=== PATIENT | female | born 1950 | race Caucasian/White ===

== ENCOUNTER → 2018-12-07 | Outpatient (CLI) | payer MEDICARE ==
[2018-12-07 16:30] LABS: LDL Cholesterol,Calculated 66.4 mg/dL (0.0-131.0); VLDL Calculation 18.6 mg/dL (5.00-40.00)
== END ==
LOC: LABWHC1 08:39
PROVIDERS: ATTEND Otolaryngology
DX: E78.00 Pure hypercholesterolemia, unspecified (principal)
CPT/HCPCS: 36415; 80061

== ENCOUNTER 2019-01-18 06:00 | Inpatient (IN) | payer MEDICARE ==
--- NOTE | 2019-01-18 06:34 | ED ---
Anxiety HPI - General Chief Complaint: Anxiety Stated Complaint: anxiety Time Seen by Provider: 01/18/19 06:11 Source: patient Mode of arrival: ambulatory - History of Present Illness Initial Comments: Patient is a 68-year-old female who presents the emergency department today for evaluation of anxiety and passive suicidal visions. Patient states that she's been under a lot of stress, her dog approximately 6 weeks ago and she reports she's been very upset since that time. She's been following with her primary care physician Dr. Rogers and has been prescribed multiple different medications including lorazepam and BuSpar, on the sixth of this month the BuSpar was discontinued and she was prescribed Lexapro. Patient reports she's been compliant with these medications but she continues to feel worsening anxiety. She reports she has been unable to sleep for the past 3 nights. She reports that she keeps having visions of herself loading a gun to shoot herself in the head. Patient adamantly reports that she does not want to but doesn't know why she can't stop having these visions. Patient states that it's making her very anxious because her second committed suicide by gunshot wound to the head. Denies any delusions she's not hearing voices she is not being any thoughts of harming others. She reports she just feels overwhelmed with anxiety and GERD. - Related Data Home Medications: Home Medications Medication Instructions Recorded Confirmed Escitalopram [Lexapro] 10 mg PO DAILY 01/18/19 01/18/19 LORazepam [Ativan] 0.5 mg PO Q8H PRN 01/18/19 01/18/19 Lisinopril 20 mg PO HS 01/18/19 01/18/19 Ondansetron HCl [Zofran] 4 mg PO Q6H PRN 01/18/19 01/18/19 busPIRone HCL [Buspar] 7.5 mg PO HS 01/18/19 01/18/19 clonazePAM 0.5 mg PO DAILY PRN 01/18/19 01/18/19 Allergies/Adverse Reactions: Allergies Allergy/AdvReac Type Severity Reaction Status Date / Time No Known Allergies Allergy Verified 01/18/19 10:21 Review of Systems ROS Statement: Those systems with pertinent positive or pertinent negative responses have been documented in the HPI. ROS Other: All systems not noted in ROS Statement are negative. Past Medical History Additional Past Medical History / Comment(s): celiac History of Any Multi-Drug Resistant Organisms: None Reported Past Surgical History: Tonsillectomy Past Psychological History: Anxiety, Depression Smoking Status: Never smoker Past Alcohol Use History: Rare Past Drug Use History: None Reported General Exam - General Exam Comments Initial Comments: Physical Exam GENERAL: Thin female, appears very anxious, agitated HENT: Normocephalic, Atraumatic. EYES: PERRL, EOMI PULMONARY: Unlabored respirations. No audible rales rhonchi or wheezing was noted. CARDIOVASCULAR: There is a regular rate and rhythm without any murmurs gallops or rubs. ABDOMEN: Soft and nontender with normal bowel sounds. SKIN: Skin is clear with no lesions or rashes and otherwise unremarkable. : Deferred NEUROLOGIC: Patient is alert and oriented x3. Moving all extremities spontaneously MUSCULOSKELETAL: Normal extremities with adequate strength and full range of motion. No lower extremity swelling or edema. No calf tenderness. PSYCHIATRIC: Anxious, tearful Limitations: no limitations Course Vital Signs 01/18/19 06:06 Temperature 98.2 F Pulse Rate 65 Respiratory 18 Rate Blood Pressure 155/84 O2 Sat by Pulse 100 Oximetry Medical Decision Making - Medical Decision Making was seen and evaluated history is obtained from the patient Patient is very anxious, reports she's not feeling well not sleeping continues to have thoughts of harming herself though she states she doesn't want to. Decision was made to have patient evaluated by EPS patient's medically cleared for EPS evaluation Patient care was signed out to Dr. Hogue at shift change, patient currently awaiting evaluation by EPS - Lab Data Result diagrams: 01/18/19 07:05 01/18/19 07:05 Lab Results 01/18/19 01/18/19 01/18/19 Range/Units 07:05 07:05 07:05 WBC 7.9 (3.8-10.6) k/uL RBC 4.69 (3.80-5.40) m/uL Hgb 13.9 (11.4-16.0) gm/dL Hct 41.2 (34.0-46.0) % MCV 87.8 (80.0-100.0) fL MCH 29.5 (25.0-35.0) pg MCHC 33.6 (31.0-37.0) g/dL RDW 13.7 (11.5-15.5) % Plt Count 283 (150-450) k/uL Neutrophils % 75 % Lymphocytes % 17 % Monocytes % 5 % Eosinophils % 1 % Basophils % 1 % Neutrophils # 5.9 (1.3-7.7) k/uL Lymphocytes # 1.3 (1.0-4.8) k/uL Monocytes # 0.4 (0-1.0) k/uL Eosinophils # 0.1 (0-0.7) k/uL Basophils # 0.0 (0-0.2) k/uL Sodium 139 (137-145) mmol/L Potassium 4.1 (3.5-5.1) mmol/L Chloride 106 (98-107) mmol/L Carbon Dioxide 25 (22-30) mmol/L Anion Gap 8 mmol/L BUN 16 (7-17) mg/dL Creatinine 0.69 (0.52-1.04) mg/dL Est GFR (CKD-EPI)AfAm >90 (>60 ml/min/1.73 sqM) Est GFR (CKD-EPI)NonAf >90 (>60 ml/min/1.73 sqM) Glucose 104 H (74-99) mg/dL Calcium 9.5 (8.4-10.2) mg/dL Total Bilirubin 1.0 (0.2-1.3) mg/dL AST 18 (14-36) U/L ALT 19 (9-52) U/L Alkaline Phosphatase 43 (38-126) U/L Total Protein 7.2 (6.3-8.2) g/dL Albumin 4.4 (3.5-5.0) g/dL TSH 2.870 (0.465-4.680) mIU/L Urine Opiates Screen Not Detected (NotDetected) Ur Oxycodone Screen Not Detected (NotDetected) Urine Methadone Screen Not Detected (NotDetected) Ur Propoxyphene Screen Not Detected (NotDetected) Ur Barbiturates Screen Not Detected (NotDetected) U Tricyclic Antidepress Not Detected (NotDetected) Ur Phencyclidine Scrn Not Detected (NotDetected) Ur Amphetamines Screen Not Detected (NotDetected) U Methamphetamines Scrn Not Detected (NotDetected) U Benzodiazepines Scrn Not Detected (NotDetected) Urine Cocaine Screen Not Detected (NotDetected) U Marijuana (THC) Screen Not Detected (NotDetected) Disposition Clinical Impression: Acute anxiety Disposition: TRANSFER TO PSYCH HOSP/UNIT
[2019-01-18 07:18] LABS: Basophils % (A) 1 %; Eosinophils # (A) 0.1 k/uL (0-0.7); Eosinophils % (A) 1 %; HCT 41.2 % (34.0-46.0); HGB 13.9 gm/dL (11.4-16.0); Lymphocytes # (A) 1.3 k/uL (1.0-4.8); Lymphocytes % (A) 17 %; MCH 29.5 pg (25.0-35.0); MCHC 33.6 g/dL (31.0-37.0); MCV 87.8 fL (80.0-100.0); Mean Platelet Volume 6.7; Monocytes # (A) 0.4 k/uL (0-1.0); Monocytes % (A) 5 %; Neutrophils # (A) 5.9 k/uL (1.3-7.7); Neutrophils % (A) 75 %; Platelet Count 283 k/uL (150-450); RBC 4.69 m/uL (3.80-5.40); RDW 13.7 % (11.5-15.5); WBC 7.9 k/uL (3.8-10.6)
[2019-01-18 07:30] LABS: ALT 19 U/L (9-52); AST 18 U/L (14-36); Albumin 4.4 g/dL (3.5-5.0); Alkaline Phosphatase 43 U/L (38-126); Anion Gap 8 mmol/L; Blood Urea Nitrogen 16 mg/dL (7-17); Calcium 9.5 mg/dL (8.4-10.2); Carbon Dioxide 25 mmol/L (22-30); Chloride 106 mmol/L (98-107); Glucose 104 mg/dL (74-99); Potassium 4.1 mmol/L (3.5-5.1); Sodium 139 mmol/L (137-145); Total Protein 7.2 g/dL (6.3-8.2)
[2019-01-18 07:48] LABS: Amphetamine Screen,Urine Not Detected (NotDetected); Barbiturate Screen,Urine Not Detected (NotDetected); Benzodiazepines Screen,Urine Not Detected (NotDetected); Cocaine Screen,Urine Not Detected (NotDetected); Methadone Screen, Urine Not Detected (NotDetected); Opiate Screen,Urine Not Detected (NotDetected); Oxycodone Screen, Urine Not Detected (NotDetected); Phencyclidine Screen,Urine Not Detected (NotDetected); Tricyclic Antidepressant,Urine Not Detected (NotDetected); Urn Cannabinoid Scrn Not Detected (NotDetected)
[2019-01-18] MEDS ORDERED: MAGNESIUM HYDROXIDE 2,400 MG/10 ML CUP PO PRN (09:06)
[2019-01-18] MEDS ORDERED: MAG HYDROX/AL HYDROX/SIMETH 30 ML CUP PO PRN (09:06)
[2019-01-18] MEDS ORDERED: ACETAMINOPHEN TAB 325 MG TAB PO PRN (09:06)
[2019-01-18] MEDS ORDERED: ZIPRASIDONE 20 MG VIAL IM PRN (09:06)
[2019-01-18] MEDS ORDERED: ONDANSETRON 4 MG TAB PO PRN (09:11)
[2019-01-18] MEDS ORDERED: LORazepam 1 MG TAB PO PRN (09:11)
[2019-01-18 10:19] VITALS: BMI 18.1
[2019-01-18] MEDS: ESCITALOPRAM 10 MG TAB PO SCH (10:44)
--- NOTE | 2019-01-18 12:12 | P.HP ---
Psychiatric H&P - . H&P Date: 01/18/19 History & Physical: Allergies Allergy/AdvReac Type Severity Reaction Status Date / Time No Known Allergies Allergy Verified 01/18/19 06:10 Vital Signs Temp 98.2 F 01/18/19 06:06 Pulse 65 01/18/19 06:06 Resp 18 01/18/19 06:06 BP 155/84 01/18/19 06:06 Pulse Ox 100 01/18/19 06:06 Intake & Output 01/17/19 01/18/19 01/18/19 18:59 06:59 18:59 Weight 48.081 kg Laboratory Last Values WBC 7.9 k/uL (3.8-10.6) 01/18/19 07:05 RBC 4.69 m/uL (3.80-5.40) 01/18/19 07:05 Hgb 13.9 gm/dL (11.4-16.0) 01/18/19 07:05 Hct 41.2 % (34.0-46.0) 01/18/19 07:05 MCV 87.8 fL (80.0-100.0) 01/18/19 07:05 MCH 29.5 pg (25.0-35.0) 01/18/19 07:05 MCHC 33.6 g/dL (31.0-37.0) 01/18/19 07:05 RDW 13.7 % (11.5-15.5) 01/18/19 07:05 Plt Count 283 k/uL (150-450) 01/18/19 07:05 Neutrophils % 75 % 01/18/19 07:05 Lymphocytes % 17 % 01/18/19 07:05 Monocytes % 5 % 01/18/19 07:05 Eosinophils % 1 % 01/18/19 07:05 Basophils % 1 % 01/18/19 07:05 Neutrophils # 5.9 k/uL (1.3-7.7) 01/18/19 07:05 Lymphocytes # 1.3 k/uL (1.0-4.8) 01/18/19 07:05 Monocytes # 0.4 k/uL (0-1.0) 01/18/19 07:05 Eosinophils # 0.1 k/uL (0-0.7) 01/18/19 07:05 Basophils # 0.0 k/uL (0-0.2) 01/18/19 07:05 Sodium 139 mmol/L (137-145) 01/18/19 07:05 Potassium 4.1 mmol/L (3.5-5.1) 01/18/19 07:05 Chloride 106 mmol/L (98-107) 01/18/19 07:05 Carbon Dioxide 25 mmol/L (22-30) 01/18/19 07:05 Anion Gap 8 mmol/L 01/18/19 07:05 BUN 16 mg/dL (7-17) 01/18/19 07:05 Creatinine 0.69 mg/dL (0.52-1.04) 01/18/19 07:05 Est GFR (CKD-EPI)AfAm >90 (>60 ml/min/1.73 sqM) 01/18/19 07:05 Est GFR (CKD-EPI)NonAf >90 (>60 ml/min/1.73 sqM) 01/18/19 07:05 Glucose 104 mg/dL (74-99) H 01/18/19 07:05 Calcium 9.5 mg/dL (8.4-10.2) 01/18/19 07:05 Total Bilirubin 1.0 mg/dL (0.2-1.3) 01/18/19 07:05 AST 18 U/L (14-36) 01/18/19 07:05 ALT 19 U/L (9-52) 01/18/19 07:05 Alkaline Phosphatase 43 U/L (38-126) 01/18/19 07:05 Total Protein 7.2 g/dL (6.3-8.2) 01/18/19 07:05 Albumin 4.4 g/dL (3.5-5.0) 01/18/19 07:05 TSH 2.870 mIU/L (0.465-4.680) 01/18/19 07:05 Urine Opiates Screen Not Detected (NotDetected) 01/18/19 07:05 Ur Oxycodone Screen Not Detected (NotDetected) 01/18/19 07:05 Urine Methadone Screen Not Detected (NotDetected) 01/18/19 07:05 Ur Propoxyphene Screen Not Detected (NotDetected) 01/18/19 07:05 Ur Barbiturates Screen Not Detected (NotDetected) 01/18/19 07:05 U Tricyclic Antidepress Not Detected (NotDetected) 01/18/19 07:05 Ur Phencyclidine Scrn Not Detected (NotDetected) 01/18/19 07:05 Ur Amphetamines Screen Not Detected (NotDetected) 01/18/19 07:05 U Methamphetamines Scrn Not Detected (NotDetected) 01/18/19 07:05 U Benzodiazepines Scrn Not Detected (NotDetected) 01/18/19 07:05 Urine Cocaine Screen Not Detected (NotDetected) 01/18/19 07:05 U Marijuana (THC) Screen Not Detected (NotDetected) 01/18/19 07:05 Assessment and Plan (1) Major depressive disorder Narrative/Plan: Patient is a 68-year-old female who presents the emergency department today for evaluation of anxiety and passive suicidal visions. Patient states that she's been under a lot of stress, her dog approximately 6 weeks ago and she reports she's been very upset since that time. She's been following with her primary care physician Dr. Rogers and has been prescribed multiple different medications including lorazepam and BuSpar, on the sixth of this month the BuSpar was discontinued and she was prescribed Lexapro. Patient reports she's been compliant with these medications but she continues to feel worsening anxiety. She reports she has been unable to sleep for the past 3 nights. She reports that she keeps having visions of herself loading a gun to shoot herself in the head. Patient adamantly reports that she does not want to but doesn't know why she can't stop having these visions. Patient states that it's making her very anxious because her second committed suicide by gunshot wound to the head. Denies any delusions she's not hearing voices she is not being any thoughts of harming others. She reports she just feels overwhelmed with anxiety and GERD. Patient presents to the ER today with increasing anxiety and suicidal ideations. Pt states she moved here in July of 2018 and has not made any friends and is "very lonely." Pt states she was on a walk with her dog 6 weeks ago and the dog just collapsed and had to be put down 2 days later and since then she has not been able to pull herself out of her depression and envisions herself loading bullets into her gun. States the visions of the gun scared her and she called 911 who took the gun and bullets and brought her to the ER. Very tearful and appears scared. Patient states she is not eating or sleeping and feels she has a weight issue. States "I weighed myself yesterday with clothes on and I'm only 106 pounds. That's too skinny. - Related Data Allergies/Adverse Reactions: Allergies Allergy/AdvReac Type Severity Reaction Status Date / Time No Known Allergies Allergy Verified 01/18/19 06:10 Past Medical History Additional Past Medical History / Comment(s): celiac History of Any Multi-Drug Resistant Organisms: None Reported Past Surgical History: Tonsillectomy Past Psychological History: Anxiety, Depression Smoking Status: Never smoker Past Alcohol Use History: Rare Past Drug Use History: None Reported Musculoskeletal Examination - Abnormal/Involuntary Movements: [none] Strength: [greater than antigravity (greater than/equal to 3/5) in all extrem ities:] Muscle Tone: [no impairment] Gait: [grossly normal] Station: [grossly normal] Mental Status Examination - General Appearance: [ casual, bizarre, appears stated age Speech/Language: [spontaneous, rapid, expressive, loud] Attitude/Behavior: [cooperative, irritable Mood: [ depressed, anxious, fearful, hopelessness] Affect: [ lively, labile Orientation: [time, person, place situation] Thought Content: [wnl Risk Factors: [admits suicidal (ideations, plan), and/or Homicidal (ideations, plan), other] Perception: [wnl,denies hallucinations (auditory, visual, tactile), other] Thought Processes: [goal-oriented Concentration/Attention Span: [wnl] [Per observation and interview with the patient] Recent Memory: [wnl 3 out of 3 in 3 minutes] Remote Memory: [wnl] [past events, as related history] Intelligence: [ average] [based on history, based on vocabulary, syntax, grammar, and content] Judgement: [good [per patient's behavior/history of present illness] Insight: [good] [understanding severity of illness/history of present illness] Admitting Diagnosis: [] Patient Strengths - Personal Skills: [x] Achievements: [x] Steady employment/financial stability: [] Housing stability: [x] Able to vocalize needs: [x] Values and traditions: [x] Motivation, determination, readiness for change: [x] Patient Limitations: [medication, lack of social supports Initial Plan of Care: [She was admitted on a formal voluntary due to depression and hallucination and suicidal ideation after loss of her dog. She'll be evaluated by medicine, psychiatry, nursing staff, social work and occupational therapy. She be integrated in the [facility] therapeutic environment. She also be evaluated on a biopsychosocial for disposition discharge purposes. She most likely end up in [facility] on Thursday with her daughter is coming to pick her up. I did discontinue the BuSpar since his little clinical use and added Lamictal for mood stabilization 25 mg by mouth daily at bedtime we'll titrate to 100 mg by Thursday. She will remain on her Lexapro. All medications were looked up and the formulary [employer]. Estimated Length of Stay: [4 days] Initial Discharge Plan: [home, Prognosis: [good Justification for Inpatient Hospitalization - [Hallucinations yesterday , agitation, anxiety, depression resulting in sig nificant loss of functioning.] [Dangerous to self, others, or property with need for controlled environment.] [Emotional or behavioral conditions and complications requiring 24 hour medical and nursing care.] [Need for special drug therapy, or other therapeutic program requiring continuous hospitalization.] [Failure of social or occupational functioning.] Current Visit: Yes Status: Acute Code(s): F32.9 - MAJOR DEPRESSIVE DISORDER, SINGLE EPISODE, UNSPECIFIED SNOMED Code(s): 532319835 Time with Patient: Less than 30
[2019-01-18] MEDS ORDERED: lamoTRIgine 25 MG TAB PO SCH (21:00)
[2019-01-18] MEDS: LISINOPRIL 20 MG TAB PO SCH (21:00)
[2019-01-18] MEDS ORDERED: busPIRone HCl 5 MG TAB PO SCH (21:00)
[2019-01-19 04:30] VITALS: RESP 16
[2019-01-19] MEDS: ESCITALOPRAM 10 MG TAB PO SCH (09:40)
[2019-01-19 10:59] LABS: Cholesterol 144 mg/dL (<200); HDL Cholesterol 62 mg/dL (40-60); LDL Cholesterol,Calculated 72 mg/dL (0-99); Triglycerides 51 mg/dL (<150)
--- NOTE | 2019-01-19 13:40 | P.PN ---
Subjective Progress Note Date: 01/19/19 Principal diagnosis: Major depressive disorder 01/19/2019: Chart reviewed and discussed in team today discussed biopsychosocial and discharge date. Patient interviewed was feeling less depressed but irritated by roommate because there are loud snoring by the roommate. Suggested earplugs. Her depression is less today at 5 out of 10. Her anxiety still runs high at 6 out of 10. She denies any suicidal or homicidal thoughts today. She denies any auditory or visual hallucinations today. Objective - Vital Signs Vital signs: Vital Signs Temp 98.4 F 01/19/19 04:29 Pulse 86 01/19/19 04:29 Resp 16 01/19/19 04:29 BP 134/85 01/19/19 04:29 Pulse Ox 99 01/18/19 10:12 Intake & Output 01/18/19 01/19/19 01/19/19 18:59 06:59 18:59 Weight 48.081 kg - Labs CBC & Chem 7: 01/18/19 07:05 01/18/19 07:05 Labs: Abnormal Lab Results - Last 24 Hours (Table) 01/18/19 Range/Units 07:05 HDL Cholesterol 62 H (40-60) mg/dL Assessment and Plan (1) Major depressive disorder Narrative/Plan: Patient is a 68-year-old female who presents the emergency department today for evaluation of anxiety and passive suicidal visions. Patient states that she's been under a lot of stress, her dog approximately 6 weeks ago and she reports she's been very upset since that time. She's been following with her primary care physician Dr. Rogers and has been prescribed multiple different medications including lorazepam and BuSpar, on the sixth of this month the BuSpar was discontinued and she was prescribed Lexapro. Patient reports she's been compliant with these medications but she continues to feel worsening anxiety. She reports she has been unable to sleep for the past 3 nights. She reports that she keeps having visions of herself loading a gun to shoot herself in the head. Patient adamantly reports that she does not want to but d oesn't know why she can't stop having these visions. Patient states that it's making her very anxious because her second committed suicide by gunshot wound to the head. Denies any delusions she's not hearing voices she is not being any thoughts of harming others. She reports she just feels overwhelmed with anxiety and GERD. Patient presents to the ER today with increasing anxiety and suicidal ideations. Pt states she moved here in July of 2018 and has not made any friends and is "very lonely." Pt states she was on a walk with her dog 6 weeks ago and the dog just collapsed and had to be put down 2 days later and since then she has not been able to pull herself out of her depression and envisions herself loading bullets into her gun. States the visions of the gun scared her and she called 911 who took the gun and bullets and brought her to the ER. Very tearful and appears scared. Patient states she is not eating or sleeping and feels she has a weight issue. States "I weighed myself yesterday with clothes on and I'm only 106 pounds. That's too skinny. - Related Data Allergies/Adverse Reactions: Allergies Allergy/AdvReac Type Severity Reaction Status Date / Time No Known Allergies Allergy Verified 01/18/19 06:10 Past Medical History Additional Past Medical History / Comment(s): celiac History of Any Multi-Drug Resistant Organisms: None Reported Past Surgical History: Tonsillectomy Past Psychological History: Anxiety, Depression Smoking Status: Never smoker Past Alcohol Use History: Rare Past Drug Use History: None Reported Musculoskeletal Examination - Abnormal/Involuntary Movements: [none] Strength: [greater than antigravity (greater than/equal to 3/5) in all extremities:] Muscle Tone: [no impairment] Gait: [grossly normal] Station: [grossly normal] Mental Status Examination - General Appearance: [ casual, bizarre, appears stated age Speech/Language: [spontaneous, rapid, expressive, loud] Attitude/Behavior: [cooperative, irritable Mood: [ depressed, anxious, fearful, hopelessness] Affect: [ lively, labile Orientation: [time, person, place situation] Thought Content: [wnl Risk Factors: [admits suicidal (ideations, plan), and/or Homicidal (ideations, plan), other] Perception: [wnl,denies hallucinations (auditory, visual, tactile), other] Thought Processes: [goal-oriented Concentration/Attention Span: [wnl] [Per observation and interview with the patient] Recent Memory: [wnl 3 out of 3 in 3 minutes] Remote Memory: [wnl] [past events, as related history] Intelligence: [ average] [based on history, based on vocabulary, syntax, grammar, and content] Judgement: [good [per patient's behavior/history of present illness] Insight: [good] [understanding severity of illness/history of present illness] Admitting Diagnosis: [Major depressive disorder] Initial Plan of Care: [She was admitted on a formal voluntary due to depression and hallucination and suicidal ideation after loss of her dog. She'll be evaluated by medicine, psychiatry, nursing staff, social work and occupational therapy. She be integrated in the [facility] therapeutic environment. She also be evaluated on a biopsychosocial for disposition discharge purposes. She most likely end up in [facility] on Thursday with her daughter is coming to ick her up. I did discontinue the BuSpar since his little clinical use and added Lamictal for mood stabilization 25 mg by mouth daily at bedtime we'll titrate to 100 mg by Thursday. She will remain on her Lexapro. All medications were looked up and the formulary [employer]. 01/19/2019: She remains on 15 minute checks for safety. Increased her Lamictal 50 mg by mouth daily at bedtime for mood stability and racing thoughts, increase Lexapro to 20 mg daily and added Mirapex for mild shaking. Current Visit: Yes Status: Acute Code(s): F32.9 - MAJOR DEPRESSIVE DISORDER, SINGLE EPISODE, UNSPECIFIED SNOMED Code(s): 548165183 Time with Patient: Less than 30
--- NOTE | 2019-01-19 17:10 | P.CONS ---
History of Present Illness - Reason for Consult Consult date: 01/19/19 Medical management, history of celiac disease Requesting physician: Everton Langford - Chief Complaint Depression, suicidal thoughts - History of Present Illness This is a 68-year-old female who follows with Dr. Rogers with history of anxiety, depression, insomnia, celiac disease, occasional alcohol use and multiple other medical issues admitted to the mental health unit for depression, suicidal thoughts. Patient's canine approximately 6 weeks ago, depression continues to worsen, on Ativan, Lexapro. States she has not slept in 3 nights. Reports continuing to have recurrent "visions"of shooting herself in the head which patient reports,is how her second committed suicide. Good appetite with no nausea vomiting or diarrhea. Occasional intake of beer, gave up wine,because its linked to dementia.Denies chest pain, palpitations or increased shortness of breath. Denies lightheadedness dizziness or focal deficits. Mild new onset hand shakiness, which patient states has worsened since her admission; possibly essential tremors. VSS. Afebrile, normal WBC. CBC, CMP unremarkable. Drug screen negative. Reports she is going to [place], [place] with her daughter at discharge. Review of Systems ROS Statement: Those systems with pertinent positive or pertinent negative responses have been documented in the HPI. ROS Other: All systems not noted in ROS Statement are negative. Past Medical History Additional Past Medical History / Comment(s): celiac History of Any Multi-Drug Resistant Organisms: None Reported Past Surgical History: Tonsillectomy Past Anesthesia/Blood Transfusion Reactions: No Reported Reaction Past Psychological History: Anxiety, Depression Smoking Status: Never smoker Past Alcohol Use History: Rare Past Drug Use History: None Reported Medications and Allergies Home Medications Medication Instructions Recorded Confirmed Type Escitalopram [Lexapro] 10 mg PO DAILY 01/18/19 01/18/19 History LORazepam [Ativan] 0.5 mg PO Q8H PRN 01/18/19 01/18/19 History Lisinopril 20 mg PO HS 01/18/19 01/18/19 History Ondansetron HCl [Zofran] 4 mg PO Q6H PRN 01/18/19 01/18/19 History busPIRone HCL [Buspar] 7.5 mg PO HS 01/18/19 01/18/19 History clonazePAM 0.5 mg PO DAILY PRN 01/18/19 01/18/19 History Allergies Allergy/AdvReac Type Severity Reaction Status Date / Time No Known Allergies Allergy Verified 01/18/19 10:21 Physical Exam Vitals: Vital Signs Temp Pulse Resp BP 01/19/19 04:29 98.4 F 86 16 134/85 PHYSICAL EXAM: VITAL SIGNS: As above GENERAL: Sitting up in chair, no acute distress HEENT: Conjunctivae normal. eyes normal. Oral mucosa moist NECK: No JVD. No thyroid enlargement. No LNs CARDIOVASCULAR: S1, S2 muffled. No murmur RESPIRATION: Breath sounds diminished in the bases. No rhonchi or crackles. No bronchial breathing. ABDOMEN: Soft, nontender . No guarding. no masses palpable. Bowel sounds heard. LEGS: No edema. no swelling PSYCHIATRY: Alert and oriented -3, mood and affect normal. NERVOUS SYSTEM: Cranial N 2-12 grossly normal. Moves all 4 limbs. No focal deficits. fine hand tremors, possibly essential Skin: no lesions no rash Joints: No active swelling. No inflammation. Lymphatic system. No LN neck axilla or groin. Results CBC & Chem 7: 01/18/19 07:05 01/18/19 07:05 Labs: Abnormal Lab Results - Last 24 Hours (Table) 01/18/19 Range/Units 07:05 HDL Cholesterol 62 H (40-60) mg/dL Assessment and Plan Assessment: -Acute anxiety, suicidal ideation -Major depressive disorder -celiac disease -Possibly new onset of fine hand tremors, possibly essential, possibly early disease process; will continue to monitor Plan: Continue on current medication regime ,monitoring and symptomatic treatment.VSS. Home meds have been reviewed and resumed. GI prophylaxis in place. Follow closely with psychiatry. Further recommendations to follow. Thank you Dr. Langford for allowing us to participate in the care of this ple asant patient. The impression and plan of care has been dictated as directed. : I performed a history and examination of this patient, discussed the same with the dictator. I agree with the dictator's note ,documented as a scribe. Any additional findings or plans will be noted. Time taken: 35 minutes
[2019-01-19] MEDS: PRAMIPEXOLE 0.125 MG TAB PO SCH ×2 (18:25→20:40)
[2019-01-19] MEDS: lamoTRIgine 25 MG TAB PO SCH (20:40)
[2019-01-19] MEDS: LISINOPRIL 20 MG TAB PO SCH (20:40)
[2019-01-19 21:24] LABS: Hemoglobin A1C 5.3 % (4.0-6.0)
[2019-01-20] MEDS: PRAMIPEXOLE 0.125 MG TAB PO SCH ×3 (09:18→20:53)
[2019-01-20] MEDS: ESCITALOPRAM 20 MG TAB PO SCH (09:18)
[2019-01-20] MEDS: PANTOPRAZOLE 40 MG TABLET PO SCH (09:18)
--- NOTE | 2019-01-20 13:53 | P.PN ---
Subjective Progress Note Date: 01/20/19 Principal diagnosis: Major depressive disorder 01/19/2019: Chart reviewed and discussed in team today discussed biopsychosocial and discharge date. Patient interviewed was feeling less depressed but irritated by roommate because there are loud snoring by the roommate. Suggested earplugs. Her depression is less today at 5 out of 10. Her anxiety still runs high at 6 out of 10. She denies any suicidal or homicidal thoughts today. She denies any auditory or visual hallucinations today. 01/20/2019: chart reviewed and discussed in team and discharge tomorrow. Interviewed patient and less depressed and no racing thoughts. denies SI/HI. She denies auditory and visual hallucinations. Objective - Vital Signs Vital signs: Vital Signs Temp 99.1 F 01/20/19 07:01 Pulse 63 01/20/19 07:01 Resp 16 01/20/19 07:01 BP 103/55 01/20/19 07:01 Pulse Ox 99 01/18/19 10:12 - Labs CBC & Chem 7: 01/18/19 07:05 01/18/19 07:05 Assessment and Plan (1) Major depressive disorder Narrative/Plan: Patient is a 68-year-old female who presents the emergency department today for evaluation of anxiety and passive suicidal visions. Patient states that she's been under a lot of stress, her dog approximately 6 weeks ago and she reports she's been very upset since that time. She's been following with her primary care physician Dr. Rogers and has been prescribed multiple different medications including lorazepam and BuSpar, on the sixth of this month the BuSpar was discontinued and she was prescribed Lexapro. Patient reports she's been compliant with these medications but she continues to feel worsening anxiety. She reports she has been unable to sleep for the past 3 nights. She reports that she keeps having visions of herself loading a gun to shoot herself in the head. Patient adamantly reports that she does not want to but doesn't know why she can't stop having these visions. Patient states that it's making her very anxious because her second committed suicide by gunshot wound to the head. Denies any delusions she's not hearing voices she is not being any thoughts of harming others. She reports she just feels overwhelmed with anxiety and GERD. Patient presents to the ER today with increasing anxiety and suicidal ideations. Pt states she moved here in July of 2018 and has not made any friends and is "very lonely." Pt states she was on a walk with her dog 6 weeks ago and the dog just collapsed and had to be put down 2 days later and since then she has not been able to pull herself out of her depression and envisions herself loading bullets into her gun. States the visions of the gun scared her and she called 911 who took the gun and bullets and brought her to the ER. Very tearful and appears scared. Patient states she is not eating or sleeping and feels she has a weight issue. States "I weighed myself yesterday with clothes on and I'm only 106 pounds. That's too skinny. - Related Data Allergies/Adverse Reactions: Allergies Allergy/AdvReac Type Severity Reaction Status Date / Time No Known Allergies Allergy Verified 01/18/19 06:10 Past Medical History Additional Past Medical History / Comment(s): celiac History of Any Multi-Drug Resistant Organisms: None Reported Past Surgical History: Tonsillectomy Past Psychological History: Anxiety, Depression Smoking Status: Never smoker Past Alcohol Use History: Rare Past Drug Use History: None Reported Musculoskeletal Examination - Abnormal/Involuntary Movements: [none] Strength: [greater than antigravity (greater than/equal to 3/5) in all extremities:] Muscle Tone: [no impairment] Gait: [grossly normal] Station: [grossly normal] Mental Status Examination - General Appearance: [ casual, bizarre, appears stated age Speech/Language: [spontaneous, rapid, expressive, loud] Attitude/Behavior: [cooperative, irritable Mood: [ depressed, anxious, fearful, hopelessness] Affect: [ lively, labile Orientation: [time, person, place situation] Thought Content: [wnl Risk Factors: [admits suicidal (ideations, plan), and/or Homicidal (ideations, plan), other] Perception: [wnl,denies hallucinations (auditory, visual, tactile), other] Thought Processes: [goal-oriented Concentration/Attention Span: [wnl] [Per observation and interview with the patient] Recent Memory: [wnl 3 out of 3 in 3 minutes] Remote Memory: [wnl] [past events, as related history] Intelligence: [ average] [based on history, based on vocabulary, syntax, grammar, and content] Judgement: [good [per patient's behavior/history of present illness] Insight: [good] [understanding severity of illness/history of present illness] Admitting Diagnosis: [Major depressive disorder] Initial Plan of Care: [She was admitted on a formal voluntary due to depression and hallucination and suicidal ideation after loss of her dog. She'll be evaluated by medicine, psychiatry, nursing staff, social work and occupational therapy. She be integrated in the [facility] therapeutic environment. She also be evaluated on a biopsychosocial for disposition discharge purposes. She most likely end up in [facility] on Thursday with her daughter is coming to pick her up. I did discontinue the BuSpar since his little clinical use and added Lamictal for mood stabilization 25 mg by mouth daily at bedtime we'll titrate to 100 mg by Thursday. She will remain on her Lexapro. All medications were looked up and the formulary [employer]. 01/19/2019: She remains on 15 minute checks for safety. Increased her Lamictal 50 mg by mouth daily at bedtime for mood stability and racing thoughts, increase Lexapro to 20 mg daily and added Mirapex for mild shaking. 01/20/2019: discharge tomorrow. remain on lamictal, mirapex and lexapro. Current Visit: Yes Status: Acute Code(s): F32.9 - MAJOR DEPRESSIVE DISORDER, SINGLE EPISODE, UNSPECIFIED SNOMED Code(s): 877438396 Time with Patient: Less than 30
--- NOTE | 2019-01-20 13:57 | P.DS ---
Providers Date of admission: 01/18/19 08:54 Expected date of discharge: 01/21/19 Attending physician: Everton Langford DO Consults: 01/18/19 09:06 Consult Physician Routine Consulting Provider: Gera Rogers Jr Consult Reason/Comments: Medical H and P Do you want consulting provider notified?: Yes Primary care physician: Gera Rogers - Discharge Diagnosis(es) (1) Major depressive disorder Allergies Allergy/AdvReac Type Severity Reaction Status Date / Time No Known Allergies Allergy Verified 01/18/19 06:10 Vital Signs Temp 98.2 F 01/18/19 06:06 Pulse 65 01/18/19 06:06 Resp 18 01/18/19 06:06 BP 155/84 01/18/19 06:06 Pulse Ox 100 01/18/19 06:06 Intake & Output 01/17/19 01/18/19 01/18/19 18:59 06:59 18:59 Weight 48.081 kg Laboratory Last Values WBC 7.9 k/uL (3.8-10.6) 01/18/19 07:05 RBC 4.69 m/uL (3.80-5.40) 01/18/19 07:05 Hgb 13.9 gm/dL (11.4-16.0) 01/18/19 07:05 Hct 41.2 % (34.0-46.0) 01/18/19 07:05 MCV 87.8 fL (80.0-100.0) 01/18/19 07:05 MCH 29.5 pg (25.0-35.0) 01/18/19 07:05 MCHC 33.6 g/dL (31.0-37.0) 01/18/19 07:05 RDW 13.7 % (11.5-15.5) 01/18/19 07:05 Plt Count 283 k/uL (150-450) 01/18/19 07:05 Neutrophils % 75 % 01/18/19 07:05 Lymphocytes % 17 % 01/18/19 07:05 Monocytes % 5 % 01/18/19 07:05 Eosinophils % 1 % 01/18/19 07:05 Basophils % 1 % 01/18/19 07:05 Neutrophils # 5.9 k/uL (1.3-7.7) 01/18/19 07:05 Lymphocytes # 1.3 k/uL (1.0-4.8) 01/18/19 07:05 Monocytes # 0.4 k/uL (0-1.0) 01/18/19 07:05 Eosinophils # 0.1 k/uL (0-0.7) 01/18/19 07:05 Basophils # 0.0 k/uL (0-0.2) 01/18/19 07:05 Sodium 139 mmol/L (137-145) 01/18/19 07:05 Potassium 4.1 mmol/L (3.5-5.1) 01/18/19 07:05 Chloride 106 mmol/L (98-107) 01/18/19 07:05 Carbon Dioxide 25 mmol/L (22-30) 01/18/19 07:05 Anion Gap 8 mmol/L 01/18/19 07:05 BUN 16 mg/dL (7-17) 01/18/19 07:05 Creatinine 0.69 mg/dL (0.52-1.04) 01/18/19 07:05 Est GFR (CKD-EPI)AfAm >90 (>60 ml/min/1.73 sqM) 01/18/19 07:05 Est GFR (CKD-EPI)NonAf >90 (>60 ml/min/1.73 sqM) 01/18/19 07:05 Glucose 104 mg/dL (74-99) H 01/18/19 07:05 Calcium 9.5 mg/dL (8.4-10.2) 01/18/19 07:05 Total Bilirubin 1.0 mg/dL (0.2-1.3) 01/18/19 07:05 AST 18 U/L (14-36) 01/18/19 07:05 ALT 19 U/L (9-52) 01/18/19 07:05 Alkaline Phosphatase 43 U/L (38-126) 01/18/19 07:05 Total Protein 7.2 g/dL (6.3-8.2) 01/18/19 07:05 Albumin 4.4 g/dL (3.5-5.0) 01/18/19 07:05 TSH 2.870 mIU/L (0.465-4.680) 01/18/19 07:05 Urine Opiates Screen Not Detected (NotDetected) 01/18/19 07:05 Ur Oxycodone Screen Not Detected (NotDetected) 01/18/19 07:05 Urine Methadone Screen Not Detected (NotDetected) 01/18/19 07:05 Ur Propoxyphene Screen Not Detected (NotDetected) 01/18/19 07:05 Ur Barbiturates Screen Not Detected (NotDetected) 01/18/19 07:05 U Tricyclic Antidepress Not Detected (NotDetected) 01/18/19 07:05 Ur Phencyclidine Scrn Not Detected (NotDetected) 01/18/19 07:05 Ur Amphetamines Screen Not Detected (NotDetected) 01/18/19 07:05 U Methamphetamines Scrn Not Detected (NotDetected) 01/18/19 07:05 U Benzodiazepines Scrn Not Detected (NotDetected) 01/18/19 07:05 Urine Cocaine Screen Not Detected (NotDetected) 01/18/19 07:05 U Marijuana (THC) Screen Not Detected (NotDetected) 01/18/19 07:05 Assessment and Plan (1) Major depressive disorder Narrative/Plan: Patient is a 68-year-old female who presents the emergency department today for evaluation of anxiety and passive suicidal visions. Patient states that she's been under a lot of stress, her dog approximately 6 weeks ago and she reports she's been very upset since that time. She's been following with her primary care physician Dr. Rogers and has been prescribed multiple different medications including lorazepam and BuSpar, on the sixth of this month the BuSpar was discontinued and she was prescribed Lexapro. Patient reports she's been compliant with these medications but she continues to feel worsening anxiety. She reports she has been unable to sleep for the past 3 nights. She reports that she keeps having visions of herself loading a gun to shoot herself in the head. Patient adamantly reports that she does not want to but doesn't know why she can't stop having these visions. Patient states that it's making her very anxious because her second committed suicide by gunshot wound to the head. Denies any delusions she's not hearing voices she is not being any thoughts of harming others. She reports she just feels overwhelmed with anxiety and GERD. Patient presents to the ER today with increasing anxiety and suicidal ideations. Pt states she moved here in July of 2018 and has not made any friends and is "very lonely." Pt states she was on a walk with her dog 6 weeks ago and the dog just collapsed and had to be put down 2 days later and since then she has not been able to pull herself out of her depression and envisions herself loading bullets into her gun. States the visions of the gun scared her and she called 911 who took the gun and bullets and brought her to the ER. Very tearful and appears scared. Patient states she is not eating or sleeping and feels she has a weight issue. States "I weighed myself yesterday with clothes on and I'm only 106 pounds. That's too skinny. - Related Data Allergies/Adverse Reactions: Allergies Allergy/AdvReac Type Severity Reaction Status Date / Time No Known Allergies Allergy Verified 01/18/19 06:10 Past Medical History Additional Past Medical History / Comment(s): celiac History of Any Multi-Drug Resistant Organisms: None Reported Past Surgical History: Tonsillectomy Past Psychological History: Anxiety, Depression Smoking Status: Never smoker Past Alcohol Use History: Rare Past Drug Use History: None Reported Musculoskeletal Examination - Abnormal/Involuntary Movements: [none] Strength: [greater than antigravity (greater than/equal to 3/5) in all extremities:] Muscle Tone: [no impairment] Gait: [grossly normal] Station: [grossly normal] Mental Status Examination - General Appearance: [ casual, bizarre, appears stated age Speech/Language: [spontaneous, rapid, expressive, loud] Attitude/Behavior: [cooperative, irritable Mood: [ depressed, anxious, fearful, hopelessness] Affect: [ lively, labile Orientation: [time, person, place situation] Thought Content: [wnl Risk Factors: [admits suicidal (ideations, plan), and/or Homicidal (ideations, plan), other] Perception: [wnl,denies hallucinations (auditory, visual, tactile), other] Thought Processes: [goal-oriented Concentration/Attention Span: [wnl] [Per observation and interview with the patient] Recent Memory: [wnl 3 out of 3 in 3 minutes] Remote Memory: [wnl] [past events, as related history] Intelligence: [ average] [based on history, based on vocabulary, syntax, grammar, and content] Judgement: [good [per patient's behavior/history of present illness] Insight: [good] [understanding severity of illness/history of present illness] Admitting Diagnosis: [major depressive disorder and suicidal thoughts] Current Visit: Yes Status: Acute Priority: Low Hospital Course: Plan of Care: [She was admitted on a formal voluntary due to depression and hallucination and suicidal ideation after loss of her dog. She'll be evaluated by medicine, psychiatry, nursing staff, social work and occupational therapy. She be integrated in the [facility] therapeutic environment. She also be evaluated on a biopsychosocial for disposition discharge purposes. She most likely end up in [facility] on Thursday with her daughter is coming to pick her up. I did discontinue the BuSpar since his little clinical use and added Lamictal for mood stabilization 25 mg by mouth daily at bedtime we'll titrate to 50 mg by Thursday. She will remain on her Lexapro. All medications were looked up for the formulary [employer]. 01/19/2019: She remains on 15 minute checks for safety. Increased her Lamictal 50 mg by mouth daily at bedtime for mood stability and racing thoughts, increase Lexapro to 20 mg daily and added Mirapex for mild shaking. 01/20/2019: discharge tomorrow. remain on lamictal, mirapex and lexapro. Mental status examination at the time of discharge: The patient presents alert, pleasant, and cooperative. There calmly seated without any agitated behavior. [she] reports that [her] mood is good. Affect is congruent and euthymic. [she] deny having any suicidal or homicidal ideation intent or plan. [she] denies any auditory or visual hallucinations. There is no evidence of any delusional thought content. [her] thought process is linear and goal-directed. [her] speech is fluent and nonpressured. [her] memory and concentration is grossly intact for the purposes of this session. Patient Condition at Discharge: Stable Plan - Discharge Summary Discharge Rx Participant: Yes New Discharge Prescriptions: New lamoTRIgine [LaMICtal] 50 mg PO 2100 30 Days #60 tab Escitalopram [Lexapro] 20 mg PO DAILY 30 Days #30 tab Pramipexole [Mirapex] 0.125 mg PO TID 30 Days #30 tab Pantoprazole [Protonix] 40 mg PO AC-BRKFST tablet. Lisinopril [Zestril] 20 mg PO HS 30 Days #30 tab Continue Lisinopril 20 mg PO HS Discontinued clonazePAM 0.5 mg PO DAILY PRN PRN Reason: Anxiety Ondansetron HCl [Zofran] 4 mg PO Q6H PRN PRN Reason: Nausea LORazepam [Ativan] 0.5 mg PO Q8H PRN PRN Reason: Anxiety busPIRone HCL [Buspar] 7.5 mg PO HS Escitalopram [Lexapro] 10 mg PO DAILY Discharge Medication List Lisinopril 20 mg PO HS 01/18/19 [History] Escitalopram [Lexapro] 20 mg PO DAILY 30 Days #30 tab 01/20/19 [Rx] Lisinopril [Zestril] 20 mg PO HS 30 Days #30 tab 01/20/19 [Rx] Pantoprazole [Protonix] 40 mg PO AC-BRKFST tablet. 01/20/19 [Rx] Pramipexole [Mirapex] 0.125 mg PO TID 30 Days #30 tab 01/20/19 [Rx] lamoTRIgine [LaMICtal] 50 mg PO 2100 30 Days #60 tab 01/20/19 [Rx] Follow up Appointment(s)/Referral(s): Gera Rogers Jr, [Primary Care Provider] - 1-2 days Patient Instructions/Handouts: Generalized Anxiety Disorder (ED) Activity/Diet/Wound Care/Special Instructions: Activity and diet as tolerated. No guns or weapons in the home. Take all medications as prescribed and attend all follow up appointments as scheduled. Refrain from alcohol and street drugs not prescribed by your physician. If in need of of medication refills, please go to your primary care physician or to your outpatient psychiatric provider. If in crisis please call , or go to the nearest . Discharge Disposition: HOME SELF-CARE
[2019-01-20] MEDS: lamoTRIgine 25 MG TAB PO SCH (20:53)
[2019-01-20] MEDS: LISINOPRIL 20 MG TAB PO SCH (20:53)
[2019-01-21 07:28] VITALS: BP 111/63; PULSE 59; TEMP 97.7
[2019-01-21] MEDS: ESCITALOPRAM 20 MG TAB PO SCH (08:55)
[2019-01-21] MEDS: PRAMIPEXOLE 0.125 MG TAB PO SCH ×2 (08:55→15:55)
[2019-01-21] MEDS: PANTOPRAZOLE 40 MG TABLET PO SCH (08:56)
== END 2019-01-21 17:11 | disposition home or self-care (01) | DRG 881 ==
LOC: EC 06:00 → 3MHU 08:54
PROVIDERS: ADMIT Psychiatry & Neurology Psychiatry; ATTEND Psychiatry & Neurology Psychiatry
DX: F32.9 Major depressive disorder, single episode, unspecified (principal); R45.851 Suicidal ideations; F41.9 Anxiety disorder, unspecified; K21.9 Gastro-esophageal reflux disease without esophagitis; K90.0 Celiac disease; G47.00 Insomnia, unspecified; G25.0 Essential tremor; Z79.899 Other long term (current) drug therapy
CPT/HCPCS: 36415; 80053; 80061; 80306; 82075; 83036; 84443; 85025; 99284

== ENCOUNTER → 2019-09-02 | Outpatient (CLI) | payer MEDICARE ==
--- NOTE | 2019-09-02 11:54 | US ---
EXAMINATION TYPE: US carotid duplex BILAT DATE OF EXAM: 09/02/2019 COMPARISON: NONE CLINICAL HISTORY: 68-year-old female memory loss R41.3. TECHNIQUE: Carotid duplex ultrasound examination. Indirect Doppler criteria is utilized. FINDINGS: EXAM MEASUREMENTS: RIGHT: Peak Systolic Velocity (PSV) cm/sec ----- Right CCA: 93.0 ----- Right ICA: 87.7 ----- Right ECA: 65.0 ICA/CCA ratio: 0.9 RIGHT: End Diastole cm/sec ----- Right CCA: 32.5 ----- Right ICA: 32.4 ----- Right ECA: 9.5 LEFT: Peak Systolic Velocity (PSV) cm/sec ----- Left CCA: 72.9 ----- Left ICA: 80.9 ----- Left ECA: 69.5 ICA/CCA ratio: 1.1 LEFT: End Diastole cm/sec ----- Left CCA: 24.5 ----- Left ICA: 35.6 ----- Left ECA: 12.2 VERTEBRALS (direction of flow): Right Vertebral: Antegrade Left Vertebral: Antegrade Rhythm: Normal SONOGRAPHY NOTES: ICA's are somewhat tortuous. Mild atherosclerotic changes with no significant sten osis seen. IMPRESSION: No hemodynamically significant ICA stenosis on either side. Criteria for Assigning % of Stenosis / Diameter reduction (Estimation based on the indirect measurements of the internal carotid artery velocities (ICA PSV). 1. Normal (no stenosis)=ICA PSV < 125 cm/s: ratio < 2.0: ICA EDV<40 cm/s. 2. Less than 50% stenosis=ICA PSV < 125 cm/s: ratio < 2.0: ICA EDV<40 cm/s. 3. 50 to 69% stenosis=ICA PSV of 125 to 230 cm/s: ration 2.0 ? 4.0: ICA EDV 40-100 cm/s. 4. Greater than 70% stenosis to near occlusion= ICA PSV > 230 cm/s: ratio > 4.0: ICA EDV > 100 cm/s. 5. Near occlusion= ICA PSV velocities may be low or undetectable: variable ratio and ICA EDV. 6. Total occlusion=unable to detect flow.
--- NOTE | 2019-09-02 22:36 | CT ---
EXAMINATION TYPE: CT brain wo/w con DATE OF EXAM: 09/02/2019 COMPARISON: None INDICATION: memory loss DLP: 1784.2 mGycm, Automated exposure control for dose reduction was used. CONTRAST: 100 mL Isovue-300 CT of the brain is performed utilizing 3 mm thick sections through the posterior fossa and 3 mm thick sections through the remaining calvarium. Study is performed within 24 hours of arrival to the hosp [facility]. No abnormal hyperdensity is present to suggest an acute intracranial hemorrhage. No mass lesion is evident. No acute infarcts are evident. Ventricles and sulci are appropriate for the patient age. Paranasal sinuses and mastoid air cells within the [id number] are clear. IMPRESSIONS: 1. Normal pre and postcontrast MRI brain
== END | disposition home or self-care (01) ==
LOC: RADCTMAIN 08:27
PROVIDERS: ATTEND Family Medicine
DX: R41.3 Other amnesia (principal)
CPT/HCPCS: 82565; 84520; 93880; 70470; 36415; Q9967

== ENCOUNTER → 2020-01-25 | Outpatient (CLI) | payer MEDICARE ==
--- NOTE | 2020-02-02 10:33 | MM ---
Reason for exam: additional evaluation requested from prior study. Last mammogram was performed 2 years ago. History: Patient is postmenopausal. Physical Findings: Nurse did not find any significant physical abnormalities on exam. MG 3D Diag Mammo W/Cad PETRA Bilateral CC and MLO view(s) were taken. Prior study comparison: January 13, 2018, mammogram, performed at [place]. The breast tissue is heterogeneously dense. This may lower the sensitivity of mammography. Benign appearing calcifications in the left breast. Bilateral upper outer quadrant posterior depth focal asymmetries. ASSESSMENT: Incomplete: need additional imaging evaluation, BI-RAD 0 RECOMMENDATION: Special view mammogram of both breasts. Ultrasound of the right breast. (right pain)
== END | disposition home or self-care (01) ==
LOC: RADMAMWWP 10:19
PROVIDERS: ATTEND Nurse Practitioner Family
DX: N63.10 Unspecified lump in the right breast, unspecified quadrant (principal); N64.4 Mastodynia
CPT/HCPCS: 77066; G0279; 77062

== ENCOUNTER → 2020-02-13 | Outpatient (CLI) | payer MEDICARE ==
--- NOTE | 2020-02-14 09:30 | MM ---
Reason for exam: additional evaluation requested from abnormal screening. Last mammogram was performed 1 month ago. History: Patient is postmenopausal. MG 3D Follow Up No Charge PETRA Bilateral ML, spot compression CC, and spot compression MLO view(s) were taken. Prior study comparison: January 25, 2020, bilateral MG 3d diag mammo w/cad PETRA. January 13, 2018, mammogram, performed at [place]. The breast tissue is heterogeneously dense. This may lower the sensitivity of mammography. Bilateral upper outer quadrant focal asymmetries disperse on additional views. No significant new findings when compared with previous films. These results were verbally communicated with the patient and result sheet given to the patient on 02/13/20. ASSESSMENT: Incomplete: need additional imaging evaluation, BI-RAD 0 RECOMMENDATION: Ultrasound of the right breast. (lower inner quadrant site of pain)
--- NOTE | 2020-02-14 09:32 | USB ---
Reason for exam: additional evaluation requested from abnormal screening. History: Patient is postmenopausal. US Breast Workup Limited RT Right limited breast ultrasound including focal area of concern, retroareolar and axilla demonstrates a 0.2 x 0.3 x 0.1cm oval, cystic, benign lesion at 6 o'clock. Scanned 3-6 o'clock and axilla. These results were verbally communicated with the patient and result sheet given to the patient on 02/13/20. ASSESSMENT: Negative, BI-RAD 1 RECOMMENDATION: Routine screening mammogram of both breasts in 1 year. Manage on a clinical basis with regard to right breast pain.
== END | disposition home or self-care (01) ==
LOC: RADMAMWWP 09:37
PROVIDERS: ATTEND Family Medicine
DX: R92.8 Other abnormal and inconclusive findings on diagnostic imaging of breast (principal)